=== PATIENT | male | born 1975 | race African-American/Black ===

== ENCOUNTER 2017-06-14 22:28 | Emergency (ER) | payer SELFPAY ==
[~2017-06-14] VITALS: Ht 175.3 cm; Wt 90.0 kg
[2017-06-14] MEDS ORDERED: SODIUM CHLORIDE 0.9% 1,000 ML IV ONE (23:50)
[2017-06-15] MEDS ORDERED: KETOROLAC 30MG/ML VIAL IV ONE
[2017-06-15] MEDS ORDERED: LORAZEPAM 0.5MG TABLET PO ONE
[2017-06-15 00:19] LABS: BASOPHILS % 0.3 % (0.0-2.0); EOSINOPHILS % 0.5 % (0.0-5.0); HEMATOCRIT. 39.1 % (42.0-52.0); HEMOGLOBIN. 13.6 g/dL (14.0-18.0); LYMPHOCYTES % 12.4 % (20.0-50.0); MEAN CORPUSCULAR HEMOGLOBIN 31.6 pg (28.0-32.0); MEAN CORPUSCULAR VOLUME 90.9 fL (80.0-94.0); MEAN PLATELET VOLUME 9.2 fl (7.4-10.4); MONOCYTES % 5.1 % (2.0-8.0); NEUTROPHILS % 81.7 % (40.0-76.0); PLATELET 160 x1000/uL (130-400); RED CELL DISTRIBUTION WIDTH 12.2 % (11.6-14.6)
[2017-06-15 00:23] LABS: CHLORIDE 102 mEq/L (98-107)
[2017-06-15 00:33] LABS: CARBON DIOXIDE 24 mEq/L (21-32)
[2017-06-15] MEDS ORDERED: SODIUM CHLORIDE 0.9% 1,000 ML IV ONE (01:15)
[2017-06-15 02:24] VITALS: BP 124/76
[2017-06-15] MEDS ORDERED: POTASSIUM CHLORIDE 20MEQ TABLET SR PO ONE (02:30)
== END 2017-06-15 02:43 | disposition home or self-care (01) ==
LOC: ER 22:32
DX: T40.7X1A Poisoning by cannabis (derivatives), accidental (unintentional), initial encounter (principal); F12.10 Cannabis abuse, uncomplicated; Y92.89 Other specified places as the place of occurrence of the external cause
CPT/HCPCS: 36415; 80053; 85025; 93005; 96361; 96374; 99285; J1885; J7030; Z7610